=== PATIENT | female | born 1995 | race Caucasian/White ===

== ENCOUNTER → 2020-12-06 | Outpatient (CLI) | payer OTHER ==
--- NOTE | 2020-12-19 08:18 | PF ---
[place] [address] PULMONARY FUNCTION REPORT Name: [facility] Room: [facility].#: [id number] Admission: 12/06/20 Attend Phys: BERNARDO Phillips Discharge: Date of : 89 Report #: [id number] THIS REPORT FOR: cc: Tressa Saavedra Stefany RNP Pervez, Adeel MD ~ DOC #: [id number] Aydin Mcdonald MD DATE OF VISIT: 12/06/2020 The FEV1/FVC ratio is normal at 71% with an FVC normal at 107%. The FEV1 is normal at 87%. The FEF 25-75 is decreased to 51%. After the administration of a bronchodilator, there is a 12% increase in the FEV1 and 39% increase in FEF 25-75. Post-bronchodilator FEV1 is 3.11 liters. Only a spirometry was performed. IMPRESSION: Minimal obstruction with evidence of reversibility, only a spirometry was performed. MD RUPERT Mendez/NIDHI <ELECTRONICALLY SIGNED> By: Aydin Mcdonald MD 12/19/20 [id number] Mcdonald MD /nt
== END ==
LOC: M.ULTRA 11-30 12:21
PROVIDERS: ATTEND Nurse Practitioner Family
DX: J98.4 Other disorders of lung (principal); R06.02 Shortness of breath; R10.9 Unspecified abdominal pain

== ENCOUNTER → 2020-12-15 | Outpatient (CLI) | payer OTHER | LOC: M.MRI 08:24 | DX: K83.1 Obstruction of bile duct (principal); R10.9 Unspecified abdominal pain ==